=== PATIENT | male | born 2000 | race Hispanic/Latino ===

== ENCOUNTER 2025-07-15 06:05 | Day surgery (SDC) | payer OTHER ==
[~2025-07-15] VITALS: Ht 165.1 cm; Wt 75.9 kg
[2025-07-15] MEDS: dexAMETHasone 10 MG/1 ML VIAL PRES.FREE PN ONE (07:10)
[2025-07-15] MEDS: TRANEXAMIC ACID 100 MG/ML 10ML VIAL As Ordered ONE (07:16)
[2025-07-15] MEDS ORDERED: MIDAZOLAM INJ 2 MG/2 ML VIAL As Ordered ONE (07:20)
[2025-07-15] MEDS: LIDOCAINE 1% SDV 5 ML VIAL PN ONE (07:20)
[2025-07-15] MEDS ORDERED: dexAMETHasone 4 MG/ML 1 ML VIAL As Ordered ONE (07:20)
[2025-07-15] MEDS: MIDAZOLAM INJ 2 MG/2 ML VIAL IV PRN (07:20)
[2025-07-15] MEDS: ROPIvacaine 0.5% 30ML VIAL PN ONE (07:20)
[2025-07-15] MEDS ORDERED: KETOROLAC 30 MG/ML 1 ML VIAL As Ordered ONE (07:20)
[2025-07-15] MEDS ORDERED: ONDANSETRON 4MG/2ML VIAL As Ordered ONE (07:20)
[2025-07-15] MEDS ORDERED: LIDOCAINE 2% 100 MG/5 ML SDV (FOR ANES.) As Ordered ONE (07:20)
[2025-07-15] MEDS ORDERED: dexmedeTOMIDine (4 MCG/ML) 200 MCG/50 ML BTL As Ordered ONE (07:21)
[2025-07-15] MEDS: ceFAZolin SOD 2 GM IV ONCE IV ONE (07:49)
[2025-07-15] MEDS ORDERED: SEVOFLURANE INHAL SOLN 250 ML BTL As Ordered ONE (08:04)
[2025-07-15] MEDS ORDERED: ACETAMINOPHEN 1000MG/100ML IV BAG As Ordered ONE (08:11)
[2025-07-15] MEDS: TRANEXAMIC ACID 100 MG/ML 10ML VIAL IV ONE (08:30)
[2025-07-15] MEDS: EPINEPHrine 1 MG/ML INJ 30 ML MD-VIAL As Ordered ONE (08:30)
[2025-07-15] MEDS ORDERED: HYDROmorphone HCL 2 MG/ML 1 ML VIAL As Ordered ONE (08:42)
[2025-07-15] MEDS: VANCOMYCIN 1000MG/20ML VIAL As Ordered ONE (08:45)
[2025-07-15] MEDS ORDERED: MORPHINE 4 MG/ML 1 ML VIAL IV PRN (09:45)
[2025-07-15] MEDS: HYDROMORPHONE HCL 0.5 MG/0.5 ML SYRINGE IV PRN (10:33)
[2025-07-15] MEDS: ONDANSETRON 4MG/2ML VIAL IV PRN (10:48)
[2025-07-15 13:04] VITALS: BP 125/59; TEMP 97.6; O2SAT 100
== END 2025-07-15 13:10 | disposition home or self-care (01) ==
LOC: M SDC 06:05
PROVIDERS: ATTEND Student in an Organized Health Care Education/Training Program
DX: S83.511A Sprain of anterior cruciate ligament of right knee, initial encounter (principal); S83.281A Other tear of lateral meniscus, current injury, right knee, initial encounter; S83.241A Other tear of medial meniscus, current injury, right knee, initial encounter; W18.42XA Slipping, tripping and stumbling without falling due to stepping into hole or opening, initial encounter; Y92.138 Other place on military base as the place of occurrence of the external cause; Y93.01 Activity, walking, marching and hiking; Y99.1 Military activity; Z87.828 Personal history of other (healed) physical injury and trauma
CPT/HCPCS: 29883; 29888; 76000; C1713; J0131; J0165; J0666; J0688; J1100; J1171; J1885; J2250; J2405; J2765; J2795; J3010; J3373